=== PATIENT | male | born 1985 | race African-American/Black ===

== ENCOUNTER 2016-11-05 17:58 | Emergency (ER) | payer SELFPAY ==
[~2016-11-05] VITALS: Ht 188 cm; Wt 88.5 kg
== END 2016-11-05 19:02 | disposition home or self-care (01) ==
LOC: CED 17:58
DX: S13.4XXA Sprain of ligaments of cervical spine, initial encounter (principal); S33.9XXA Sprain of unspecified parts of lumbar spine and pelvis, initial encounter; V43.62XA Car passenger injured in collision with other type car in traffic accident, initial encounter; Y92.410 Unspecified street and highway as the place of occurrence of the external cause
CPT/HCPCS: 99283

== ENCOUNTER 2016-11-29 04:03 | Emergency (ER) | payer SELFPAY ==
[~2016-11-29] VITALS: Ht 188 cm; Wt 88.5 kg
--- NOTE | ~2016-11-29 | CT4 ---
[facility] A Service of [facility] RADIOLOGY TEXT RESULTS PATIENT: JASMEET SIMS LOCATION: [facility] : 89 UNIT #: [id number] AGE: [address]: JADEN العلي APRN SEX: M ORDER DR: [id number] [address] [id number] MR#: [id number] Acc #: [id number] NAME: JASMEET SIMS : 1985 SEX: M STUDY DATE/TIME: 11/29/2016 5:00 UNIT: JARETT ROOM: STUDY DESCRIPTION: CT Abd and Pelv Wo Cont Attending Physician: Jaden العلي Aprn Ordering Physician: Jaden العلي Aprn Primary Care Physician: No Primary Care Physician MEDICAL IMAGING REPORT This report is preliminary unless electronic signature is present EXAM CT abdomen and pelvis without contrast INDICATION Left flank pain today. PROCEDURE Unenhanced CT of the abdomen and pelvis. This CT exam was performed with one or more of the following radiation dose reduction techniques: Automatic exposure control, adjustment of mA and/or kV according to patient size, and iterative reconstruction. COMPARISON None. FINDINGS ABDOMEN WITHOUT CONTRAST: Included lung bases are clear. The liver, spleen, adrenal glands, pancreas, and gallbladder have an unremarkable, unenhanced appearance. Bowel loops are nondilated. Appendix is normal. A 10 mm high-attenuation lesion in the right kidney, nonspecific, but probably small hemorrhagic cyst. There is mild right hydronephrosis but no radiodense ureteral calculus. PELVIS WITHOUT CONTRAST: Punctate dependent calculus in the bladder. No pelvic mass or fluid. No aggressive appearing bone lesion. IMPRESSION Tiny 1 mm calculus in the bladder probably a recently passed stone. Mild right hydronephrosis. Dictated by... Pradeep Dozier M.D. [facility] A Service of [facility] RADIOLOGY TEXT RESULTS PATIENT: JASMEET SIMS LOCATION: [facility] : 89 UNIT #: [id number] AGE: [address]: JADEN العلي APRN SEX: M ORDER DR: THIS IS AN ELECTRONICALLY VERIFIED REPORT Pradeep Dozier M.D. at 11/30/2016 9:56 PM MARY/jacque TD: 11/29/2016 12:37 JOB #: [id number] MEDICAL IMAGING REPORT Page 1 of 1 COPY
[2016-11-29 04:58] LABS: BASOPHIL% 0.5 % (0-2.5); DIFF IND NO; EOSINOPHIL% 0.6 % (0.0-7.0); HEMATOCRIT 39.3 % (38.0-50.0); LYMPHOCYTE# 2.6 X10e3 (1.0-3.5); LYMPHOCYTE% 36.8 % (17.0-45.0); MEAN CELL VOLUME 97.6 FL (83-96); MEAN CORPUSCULAR HEMOGLOBIN 32.3 PG (28-34); MEAN CORPUSCULAR HGB CONC 33.1 g/dL (30-36); MEAN PLATELET VOLUME 8.7 FL (6.5-11.5); MONOCYTE# 0.6 X10e3 (0-1.0); NEUTROPHIL# 3.7 X10e3 (1.5-7.1); NEUTROPHIL% 53.1 % (40-75); PLATELET COUNT 302 X10e3 (140-420); RED BLOOD COUNT 4.02 X10e (3.90-5.60); RED CELL DISTRIBUTION WIDTH 12.1 % (11.0-15.5)
[2016-11-29 05:21] LABS: CALCIUM SERUM 8.8 mg/dL (8.4-10.2); CREATININE SERUM 1.6 mg/dL (0.6-1.4); GLOM FILT RATE Estimated 66.5 mL/min (>60); POTASSIUM 3.3 mmol/L (3.5-5.1)
[2016-11-29 06:37] LABS: URINE APPEARANCE CLEAR; URINE BILIRUBIN NEG (NEG); URINE BLOOD 3+ (NEG); URINE COLOR YELLOW; URINE GLUCOSE NEG (NEG); URINE KETONE NEG (NEG); URINE LEUKOCYTE ESTERASE NEG (NEG); URINE NITRATE NEG (NEG); URINE PROTEIN TRACE (NEG); URINE SPECIFIC GRAVITY 1.014 (1.003-1.035); URINE UROBILINOGEN 0.2 MG/DL (NEG)
[2016-11-29 06:40] LABS: U HYALINE CASTS AUWI 0-2 /[LPF]; URBCS1 AUWI 50-100 /[HPF] (0-2); URINE BACTERIA AUWI NEG (NEGATIVE); URINE SQUAMOUS EPITHELIAL CELL NONE SEEN /[HPF]; UWBCS1 AUWI 0-2 (0-5)
[2016-11-29 06:52] LABS: CULTURE INDICATED? NO
== END 2016-11-29 07:40 | disposition home or self-care (01) ==
LOC: CED 04:03
PROVIDERS: Nurse Practitioner Family
DX: N13.2 Hydronephrosis with renal and ureteral calculous obstruction (principal)
CPT/HCPCS: 74176; 80048; 81003; 85025; 96374; 96375; 99284; J2270; J2405